=== PATIENT | male | born 1970 | race Caucasian/White ===

== ENCOUNTER → 2017-05-23 | Outpatient (CLI) | payer OTHER ==
[~2017-05-23] MED LIST: AMOX500 PO; CYCL10 PO; Flonase 0.05% N16 GM; IBUP800; LORA10 PO; Mucinex600 MG PO; Naprosyn500 MG PO; TRAM50 PO
[2017-05-23 10:21] LABS: BASOPHILS ABSOLUTE AUTO 0.05 K/mm3 (0.00-0.23); BASOPHILS PERCENT AUTO 1 % (0-2); EOSINOPHILS ABSOLUTE AUTO 0.16 K/mm3 (0.00-0.68); EOSINOPHILS PERCENT AUTO 3 % (0-6); Hematocrit 45.2 % (37.0-53.0); IMMATURE GRAN ABSOLUTE AUTO 0.01 K/mm3 (0.00-0.10); IMMATURE GRAN PERCENT AUTO 0 % (0-1); LYMPHOCYTES ABSOLUTE AUTO 1.92 K/mm3 (0.84-5.20); LYMPHOCYTES PERCENT AUTO 35 % (21-46); MONOCYTES ABSOLUTE AUTO 0.53 K/mm3 (0.16-1.47); MONOCYTES PERCENT AUTO 10 % (4-13); Mean Corpuscular HGB 31.4 pg (26.0-34.0); Mean Corpuscular HGB Conc 35.4 g/dL (31.5-36.5); Mean Corpuscular Volume 89 fL (80-100); Mean Platelet Volume 11.3 fL (9.1-12.4); NEUTROPHILS ABSOLUTE AUTO 2.77 K/mm3 (1.96-9.15); NEUTROPHILS PERCENT AUTO 51 % (41-73); Platelet Count 204 K/mm3 (150-400); RDW Coefficient Variation 12.5 % (11.7-14.2); RDW Standard Deviation 40.9 fL (35.1-46.3); Red Blood Cell Count 5.09 M/mm3 (4.30-5.90); White Blood Cell Count 5.44 K/mm3 (4.00-11.30)
[2017-05-23 10:39] LABS: Alanine Aminotransfer (ALT/SGP 29 U/L (12-78); Albumin/Globulin Ratio 1.2 (0.8-1.8); Alk Phos 57 U/L (40-126); Anion Gap 8 mmol/L (6-16); Aspartate Aminotrans (AST/SGOT 16 U/L (12-37); Bilirubin, Total 0.7 mg/dL (0.1-1.0); Blood Urea Nitrogen 6 mg/dL (8-24); CO2, Blood 29 mmol/L (21-32); Calcium, Blood 8.7 mg/dL (8.5-10.1); Chloride, Blood 104 mmol/L (98-108); Globulin, Blood 3.3 g/dL (2.2-4.0); Glomerular Filtration Rate >60 (60-); Glucose, Blood 125 mg/dL (70-99); Potassium, Blood 4.2 mmol/L (3.5-5.5); Sodium, Blood 141 mmol/L (136-145); Total Protein, Blood 7.3 g/dL (6.4-8.2)
== END ==
LOC: LAB EV 10:18
PROVIDERS: General Practice
DX: R10.9 Unspecified abdominal pain (principal)
CPT/HCPCS: 80053; 85025

== ENCOUNTER 2018-05-29 21:30 | Emergency (ER) | payer OTHER ==
[~2018-05-29] VITALS: Ht 167.6 cm; Wt 108.9 kg
[2018-05-29 21:51] LABS: BASOPHILS ABSOLUTE AUTO 0.07 K/mm3 (0.00-0.23); BASOPHILS PERCENT AUTO 1 % (0-2); EOSINOPHILS ABSOLUTE AUTO 0.18 K/mm3 (0.00-0.68); EOSINOPHILS PERCENT AUTO 2 % (0-6); Hematocrit 42.2 % (37.0-53.0); Hemoglobin 14.4 g/dL (13.5-17.5); IMMATURE GRAN ABSOLUTE AUTO 0.03 K/mm3 (0.00-0.10); IMMATURE GRAN PERCENT AUTO 0 % (0-1); LYMPHOCYTES ABSOLUTE AUTO 2.86 K/mm3 (0.84-5.20); LYMPHOCYTES PERCENT AUTO 24 % (21-46); MONOCYTES ABSOLUTE AUTO 0.96 K/mm3 (0.16-1.47); MONOCYTES PERCENT AUTO 8 % (4-13); Mean Corpuscular HGB 31.9 pg (26.0-34.0); Mean Corpuscular HGB Conc 34.1 g/dL (31.5-36.5); Mean Corpuscular Volume 93 fL (80-100); Mean Platelet Volume 10.5 fL (9.1-12.4); NEUTROPHILS ABSOLUTE AUTO 7.92 K/mm3 (1.96-9.15); NEUTROPHILS PERCENT AUTO 66 % (41-73); Platelet Count 209 K/mm3 (150-400); RDW Coefficient Variation 12.4 % (11.7-14.2); Red Blood Cell Count 4.52 M/mm3 (4.30-5.90); White Blood Cell Count 12.02 K/mm3 (4.00-11.30)
[2018-05-29 21:59] LABS: Source, Urine Clean Catch
[2018-05-29 22:07] LABS: Bilirubin, Urine Neg (Neg); Blood, Urine Neg (Neg); Glucose Qualitative, Urine 1+ (Neg); Ketones, Urine Neg (Neg); Leukocyte Esterase, Urine 1+ (Neg); Nitrite, Urine Neg (Neg); Protein, Urine Neg (Neg); Specific Gravity, Urine 1.015 (1.003-1.022); Urobilinogen, Urine NORM (Normal)
[2018-05-29 22:09] LABS: Appearance, Urine Clear (Clear); Color, Urine Yellow (P-Yellow)
[2018-05-29 22:10] LABS: Alanine Aminotransfer (ALT/SGP 24 U/L (12-78); Albumin, Blood 3.7 g/dL (3.4-5.0); Albumin/Globulin Ratio 1.2 (0.8-1.8); Alk Phos 56 U/L (50-136); Anion Gap 6 mmol/L (6-16); Aspartate Aminotrans (AST/SGOT 12 U/L (12-37); Bilirubin, Total 0.6 mg/dL (0.1-1.0); Blood Urea Nitrogen 13 mg/dL (8-24); Bun/Creatinine Ratio 26.9 (12.0-20.0); CO2, Blood 27 mmol/L (21-32); Calcium, Blood 8.8 mg/dL (8.5-10.1); Chloride, Blood 107 mmol/L (98-108); Creatinine, Blood 0.48 mg/dL (0.60-1.20); Globulin, Blood 3.1 g/dL (2.2-4.0); Glomerular Filtration Rate >60 (60-); Glucose, Blood 186 mg/dL (70-99); Potassium, Blood 4.1 mmol/L (3.5-5.5); Sodium, Blood 140 mmol/L (136-145); Total Protein, Blood 6.8 g/dL (6.4-8.2)
[2018-05-29 22:15] LABS: Amorphous Light (0-Heavy); Bacteria Rare /hpf; Red Blood Cells, Urine Not Seen /hpf (0-2); Squamous Epithelial Cells Not Seen /hpf (Few); White Blood Cells, Urine Rare /hpf (0-5)
[2018-05-29] MEDS ORDERED: [UNRECOGNIZED DRUG - REMARK] (23:30)
[2018-05-29] MEDS ORDERED: OMEPRAZOLE20 MG PO (23:30)
[2018-05-30] MEDS ORDERED: Norco 5-325 Ta1 EACH PO (01:14)
[2018-05-30] MEDS ORDERED: Augmentin 875-1 EACH PO (01:14)
[2018-05-30] MEDS ORDERED: ONDA4ODT MM (01:14)
[2018-05-30] MEDS ORDERED: Colace100 MG PO (01:14)
== END 2018-05-30 01:55 | disposition home or self-care (01) ==
LOC: ER 21:30
PROVIDERS: Emergency Medicine
DX: K57.32 Diverticulitis of large intestine without perforation or abscess without bleeding (principal); Z79.899 Other long term (current) drug therapy; F17.210 Nicotine dependence, cigarettes, uncomplicated
CPT/HCPCS: 74177; 80053; 81001; 83690; 85025; 87086; 99284-25; A9270-GY; Q9967

== ENCOUNTER → 2021-05-30 | Outpatient (CLI) | payer OTHER ==
[~2021-05-30] MED LIST changes: +Augmentin 875-1 EACH PO; +Colace100 MG PO; +Norco 5-325 Ta1 EACH PO; +OMEPRAZOLE20 MG PO; +ONDA4ODT MM; +[UNRECOGNIZED DRUG - REMARK]
== END ==
LOC: LAB 07:18 → PLD 07:18 → LAB SHORT 07:18
DX: D48.5 Neoplasm of uncertain behavior of skin (principal)
CPT/HCPCS: 88312

== ENCOUNTER 2021-08-23 12:36 | Emergency (ER) | payer OTHER ==
[~2021-08-23] VITALS: Ht 165.1 cm; Wt 122.5 kg
[2021-08-23 13:58] LABS: BASOPHILS PERCENT AUTO 1 % (0-2); EOSINOPHILS ABSOLUTE AUTO 0.26 K/mm3 (0.00-0.68); EOSINOPHILS PERCENT AUTO 2 % (0-6); Hematocrit 44.4 % (37.0-53.0); IMMATURE GRAN ABSOLUTE AUTO 0.12 K/mm3 (0.00-0.10); IMMATURE GRAN PERCENT AUTO 1 % (0-1); LYMPHOCYTES ABSOLUTE AUTO 1.62 K/mm3 (0.84-5.20); LYMPHOCYTES PERCENT AUTO 14 % (21-46); MONOCYTES PERCENT AUTO 9 % (4-13); Mean Corpuscular HGB 29.8 pg (26.0-34.0); Mean Corpuscular HGB Conc 33.8 g/dL (31.5-36.5); Mean Corpuscular Volume 88 fL (80-100); Mean Platelet Volume 11.2 fL (9.1-12.4); NEUTROPHILS ABSOLUTE AUTO 8.68 K/mm3 (1.96-9.15); NEUTROPHILS PERCENT AUTO 73 % (41-73); Platelet Count 266 K/mm3 (150-400); RDW Coefficient Variation 12.7 % (11.7-14.2); RDW Standard Deviation 41.1 fL (35.1-46.3); Red Blood Cell Count 5.03 M/mm3 (4.30-5.90); White Blood Cell Count 11.88 K/mm3 (4.00-11.30)
[2021-08-23 14:03] LABS: Bun/Creatinine Ratio 18.6 (12.0-20.0); C-REACTIVE PROTEIN, EXT RANGE 10.8 mg/dL (0.000-0.300); Calcium, Blood 9.3 mg/dL (8.5-10.1); Creatinine, Blood 0.59 mg/dL (0.60-1.20); Potassium, Blood 4.3 mmol/L (3.5-5.5)
[2021-08-23] MEDS ORDERED: ALOGLIPTIN25 M7 PO (16:21)
[2021-08-23] MEDS ORDERED: GLIP10 PO (16:22)
[2021-08-23] MEDS ORDERED: METFORMIN HCL500 M3 PO (16:22)
[2021-08-23] MEDS ORDERED: KETO10 PO (18:12)
[2021-08-23] MEDS ORDERED: CEPH500 PO (18:12)
== END 2021-08-23 18:34 | disposition home or self-care (01) ==
LOC: ER 12:36
PROVIDERS: Physician Assistant
DX: L03.116 Cellulitis of left lower limb (principal); R73.9 Hyperglycemia, unspecified; F17.210 Nicotine dependence, cigarettes, uncomplicated; Z79.899 Other long term (current) drug therapy; Z79.84 Long term (current) use of oral hypoglycemic drugs
CPT/HCPCS: 36415; 80048; 85025; 86140; 93971; A9270; J1885

== ENCOUNTER 2021-08-26 08:02 | Emergency (ER) | payer OTHER ==
[~2021-08-26] VITALS: Ht 170.2 cm; Wt 83.9 kg
[~2021-08-26 08:02] MED LIST changes: +ALOGLIPTIN25 M7 PO; +CEPH500 PO; +GLIP10 PO; +KETO10 PO; +METFORMIN HCL500 M3 PO
== END 2021-08-26 08:55 | disposition home or self-care (01) ==
LOC: ER 08:02
DX: L03.116 Cellulitis of left lower limb (principal); J44.9 Chronic obstructive pulmonary disease, unspecified; E11.9 Type 2 diabetes mellitus without complications; F17.210 Nicotine dependence, cigarettes, uncomplicated; Z79.899 Other long term (current) drug therapy; Z79.84 Long term (current) use of oral hypoglycemic drugs
CPT/HCPCS: 99282

== ENCOUNTER → 2023-04-08 | Outpatient (CLI) | payer OTHER | LOC: LAB SHORT 13:22 → LAB 13:22 | DX: M25.532 Pain in left wrist (principal) | CPT/HCPCS: 84550 ==

== ENCOUNTER → 2024-04-18 | Outpatient (CLI) | payer OTHER ==
[2024-04-18 11:05] LABS: BASOPHILS PERCENT AUTO 1 % (0-2); EOSINOPHILS ABSOLUTE AUTO 0.45 K/mm3 (0.00-0.68); EOSINOPHILS PERCENT AUTO 6 % (0-6); Hematocrit 45.3 % (37.0-53.0); Hemoglobin 16.2 g/dL (13.5-17.5); IMMATURE GRAN ABSOLUTE AUTO 0.02 K/mm3 (0.00-0.10); IMMATURE GRAN PERCENT AUTO 0 % (0-1); LYMPHOCYTES ABSOLUTE AUTO 1.68 K/mm3 (0.84-5.20); LYMPHOCYTES PERCENT AUTO 22 % (21-46); MONOCYTES ABSOLUTE AUTO 0.62 K/mm3 (0.16-1.47); MONOCYTES PERCENT AUTO 8 % (4-13); Mean Corpuscular HGB 30.6 pg (26.0-34.0); Mean Corpuscular HGB Conc 35.8 g/dL (31.5-36.5); Mean Corpuscular Volume 86 fL (80-100); Mean Platelet Volume 10.5 fL (9.1-12.4); NEUTROPHILS ABSOLUTE AUTO 4.94 K/mm3 (1.96-9.15); NEUTROPHILS PERCENT AUTO 63 % (41-73); Platelet Count 287 K/mm3 (150-400); RDW Coefficient Variation 12.9 % (11.7-14.2); White Blood Cell Count 7.81 K/mm3 (4.00-11.30)
[2024-04-18 11:18] LABS: Albumin, Blood 3.9 g/dL (3.4-5.0); Albumin/Globulin Ratio 1.1 (0.8-1.8); Bilirubin, Total 1.4 mg/dL (0.1-1.0); Bun/Creatinine Ratio 15.2 (12.0-20.0); Calcium, Blood 9.4 mg/dL (8.5-10.1); Creatinine, Blood 0.66 mg/dL (0.60-1.20); Globulin, Blood 3.4 g/dL (2.2-4.0); Potassium, Blood 4.5 mmol/L (3.5-5.5); Total Protein, Blood 7.3 g/dL (6.4-8.2)
== END ==
LOC: LAB SHORT 11:00 → LAB 11:00
PROVIDERS: Chiropractor
DX: R10.12 Left upper quadrant pain (principal); R10.13 Epigastric pain; R17 Unspecified jaundice
CPT/HCPCS: 80053; 82248; 83690; 84484; 85025

== ENCOUNTER 2024-05-19 10:26 | Day surgery (SDC) | payer OTHER ==
[~2024-05-19] VITALS: Ht 167.6 cm; Wt 94.1 kg
[~2024-05-19 10:26] MED LIST changes: +Lactated Ringer's 1,000 ML IV SCH
[2024-05-19 10:57] VITALS: BP 136/94
--- NOTE | 2024-05-19 11:05 | NUR ---
Ambulatory in Day Surgery. History, Chart, Medications and Allergies reviewed before start of procedure. Lungs clear T/O to Auscultation. Patient confirms NPO status and agrees with scheduled surgery. Pre-Op teaching done. Pt verbalizes understanding. Patient States Post-Procedure ride home has been arranged.
[2024-05-19] MEDS ORDERED: propofoL 20 ML IV ONE (11:24)
--- NOTE | 2024-05-19 11:24 | NUR ---
05/19/24 1124 Shannan Adkins History, Chart, Medications and Allergies reviewed before start of procedure. DR LEWIS PROVIDING ANESTHESIA SEEECORD
[2024-05-19 11:50] VITALS: BP 134/67
--- NOTE | 2024-05-19 11:53 | NUR ---
REPORT RECEIVED FROM ASHLEY RICHARD. VSS. PT ON RA. PT A&OX4. PT ABLE TO REPOSITION SELF IN BED. PT REQUESTING PO FLUIDS AND TOLERATING THEM WELL. PT DENIES PAIN, NAUSEA OR OTHER DISCOMFORTS. PT SPOUSE AT BEDSIDE.
[2024-05-19 12:00] VITALS: BP 138/73
[2024-05-19 12:05] VITALS: BP 137/82
--- NOTE | 2024-05-19 12:21 | NUR ---
Patient up to Ambulate independently. Gait steady. VSS AND CONSISTENT WITH PT BASELINE. PT HAS NO COMPLAINTS AND VERBALIZES READINESS TO GO HOME. Discharge instructions reviewed with patient AND HIS SPOUSE. Patient verbalizes understanding. Copy given to patient to take home. Patient States Post-Procedure ride home has been arranged. Discharged via wheelchair to private car for ride home. PT BELONGINGS RETURNED TO PT.
== END 2024-05-19 12:15 | disposition home or self-care (01) ==
LOC: ORD 10:26 → ORSCMMR 10:26 → ORD 10:27 → ORSCMMR 10:27 → ORD 12:15 → ORSCMMR 12:15 → ORD 14:15
PROVIDERS: Internal Medicine Gastroenterology
PROC: 0DB48ZX Excision of Esophagogastric Junction, Via Natural or Artificial Opening Endoscopic, Diagnostic (ICD-10-PCS; principal; 2024-05-19 14:15)
DX: R13.10 Dysphagia, unspecified (principal); C15.9 Malignant neoplasm of esophagus, unspecified; R63.4 Abnormal weight loss; K21.9 Gastro-esophageal reflux disease without esophagitis; Z87.891 Personal history of nicotine dependence; E11.9 Type 2 diabetes mellitus without complications; Z79.84 Long term (current) use of oral hypoglycemic drugs; Z79.899 Other long term (current) drug therapy
CPT/HCPCS: 82947; 88305; 88360; J2704; J7120

== ENCOUNTER 2024-05-31 08:57 | Inpatient (IN) | payer OTHER ==
[~2024-05-31] VITALS: Ht 167.6 cm; Wt 89.1 kg
[~2024-05-31 08:57] MED LIST changes: -Lactated Ringer's 1,000 ML IV SCH
[2024-05-31 10:17] LABS: BASOPHILS ABSOLUTE AUTO 0.12 K/mm3 (0.00-0.23); BASOPHILS PERCENT AUTO 1 % (0-2); EOSINOPHILS ABSOLUTE AUTO 0.28 K/mm3 (0.00-0.68); EOSINOPHILS PERCENT AUTO 3 % (0-6); Hematocrit 38.6 % (37.0-53.0); Hemoglobin 14.1 g/dL (13.5-17.5); IMMATURE GRAN ABSOLUTE AUTO 0.03 K/mm3 (0.00-0.10); IMMATURE GRAN PERCENT AUTO 0 % (0-1); LYMPHOCYTES ABSOLUTE AUTO 1.47 K/mm3 (0.84-5.20); LYMPHOCYTES PERCENT AUTO 17 % (21-46); MONOCYTES PERCENT AUTO 7 % (4-13); Mean Corpuscular HGB 31.1 pg (26.0-34.0); Mean Corpuscular HGB Conc 36.5 g/dL (31.5-36.5); Mean Corpuscular Volume 85 fL (80-100); Mean Platelet Volume 10.7 fL (9.1-12.4); NEUTROPHILS ABSOLUTE AUTO 6.21 K/mm3 (1.96-9.15); NEUTROPHILS PERCENT AUTO 71 % (41-73); Platelet Count 300 K/mm3 (150-400); Red Blood Cell Count 4.54 M/mm3 (4.30-5.90); White Blood Cell Count 8.71 K/mm3 (4.00-11.30)
[2024-05-31 10:43] LABS: Albumin, Blood 3.6 g/dL (3.4-5.0); Albumin/Globulin Ratio 1.2 (0.8-1.8); Bun/Creatinine Ratio 28.3 (12.0-20.0); Calcium, Blood 8.7 mg/dL (8.5-10.1); Creatinine, Blood 0.46 mg/dL (0.60-1.20); Globulin, Blood 3.1 g/dL (2.2-4.0); Potassium, Blood 4.1 mmol/L (3.5-5.5); Total Protein, Blood 6.7 g/dL (6.4-8.2)
[2024-05-31] MEDS ORDERED: NS 1,000 ML IV SCH (12:55)
[2024-05-31] MEDS ORDERED: FentaNYL Citrate 50 MCG/ML 2 ML Injection IV PRN (12:55)
[2024-05-31 14:41] VITALS: BP 140/89
[2024-05-31] MEDS ORDERED: ALPRAZolam 0.25 MG Tab PO PRN (18:25)
[2024-05-31 19:41] VITALS: BP 130/78
[2024-05-31] MEDS ORDERED: Melatonin 5 MG Tablet PO SCH (21:00)
[2024-06-01] VITALS (13 sets, daily range): BP systolic 127–149; BP diastolic 66–85
--- NOTE | 2024-06-01 04:23 | NUR ---
SHIFT SUMMARY PT ALERT ORIENTED X 4 ABLE TO VERBALIZE NEEDS GETS UP AD NNEKA IN HIS ROOM. REMAINS NPO R/T DYSPHAGIA AND ESOPHAGEAL CANCER. C/O ANXIETY AND TROUBLE SLEEPING MEDICATED WITH XANAX AND MELATONIN AND HE SLEPT WELL MOST OF THE NIGHT. NO C/O PAIN THIS SHIFT. REMAINS ON NS AT 50. VSS ON RA SATTING AT 98%. HE DOES HAVE A LOW GRADE TEMP OF 99.0 AND 99.7. HES PENDING ONCOLOGY EVAL TO SEE WHAT THE NEXT STEPS WILL BE AND IF HE WILL GET A PEG TUBE OR MEDIPORT PLACED. RESTING IN BED AT THIS TIME WITH CALL LIGHT IN REACH
[2024-06-01 05:41] LABS: Hemoglobin 13.6 g/dL (13.5-17.5); Mean Corpuscular HGB 30.7 pg (26.0-34.0); Mean Corpuscular HGB Conc 35.8 g/dL (31.5-36.5); Mean Corpuscular Volume 86 fL (80-100); Platelet Count 259 K/mm3 (150-400); RDW Coefficient Variation 13.2 % (11.7-14.2); RDW Standard Deviation 41.1 fL (35.1-46.3); Red Blood Cell Count 4.43 M/mm3 (4.30-5.90); White Blood Cell Count 7.64 K/mm3 (4.00-11.30)
[2024-06-01 06:19] LABS: Bun/Creatinine Ratio 20.1 (12.0-20.0); Calcium, Blood 8.5 mg/dL (8.5-10.1); Creatinine, Blood 0.55 mg/dL (0.60-1.20); Potassium, Blood 3.8 mmol/L (3.5-5.5)
[2024-06-01] MEDS ORDERED: Enoxaparin 40 MG/0.4 ML SYR SC SCH (09:00)
[2024-06-01] MEDS ORDERED: CeFAZolin Sodium 2,000 MG in NS 100 ML IV SCH (10:35)
[2024-06-01] MEDS ORDERED: Lactated Ringer's 1,000 ML IV SCH (10:45)
[2024-06-01] MEDS ORDERED: Bupivacaine 0.5% HCl 5 MG/ML 30MLVIAL ONE (10:50)
--- NOTE | 2024-06-01 11:11 | NUR ---
History, Chart, Medications and Allergies reviewed before start of procedure. Patient confirms NPO status and agrees with scheduled surgery. Pre-Op teaching done. Pt verbalizes understanding. Lungs clear T/O to Auscultation.
[2024-06-01] MEDS ORDERED: propofoL 20 ML IV ONE (11:18)
[2024-06-01] MEDS ORDERED: FentaNYL Citrate 50 MCG/ML 2 ML Injection ONE (11:18)
[2024-06-01] MEDS ORDERED: Phenylephrine HCl 100 MCG/ML-NS 10MLSYR (1MG/10ML) ONE (11:33)
[2024-06-01] MEDS ORDERED: Metoclopramide HCl 5MG / ML 2ML Vial IV PRN (11:40)
[2024-06-01] MEDS ORDERED: Scopolamine Hydrobromide Patch TOP SCH (11:45)
[2024-06-01] MEDS ORDERED: Albuterol 2.5 MG/3 ML VIAL INH PRN (11:45)
[2024-06-01] MEDS ORDERED: HydrALAZINE HCl 20 MG / ML 1ML Vial IV PRN (11:45)
[2024-06-01] MEDS ORDERED: Labetalol HCL 5 MG/ML 4ML Injection (Single Dose) IV PRN (11:45)
[2024-06-01] MEDS ORDERED: Ondansetron HCl 2 MG / ML 2ML Vial IV PRN (11:45)
[2024-06-01] MEDS ORDERED: FentaNYL Citrate 50 MCG/ML 2 ML Injection IV PRN ×2 (11:45→11:50)
[2024-06-01] MEDS ORDERED: HYDROmorphone HCl/Pf 1MG SYR IV PRN (11:45)
[2024-06-01] MEDS ORDERED: ePHEDrine Sulfate 50 MG/ML 1ML Injection IV PRN (11:50)
[2024-06-01] MEDS ORDERED: Morphine Sulfate 4 MG/1 ML Injection IV PRN (11:50)
[2024-06-01] MEDS ORDERED: Droperidol 5 mg/2 ml Vial IV PRN (11:50)
[2024-06-01] MEDS ORDERED: Rocuronium Bromide 10 MG/ML 5ML Injection IV ONE (12:36)
[2024-06-01] MEDS ORDERED: Glycopyrrolate 0.2 MG/ML 5ML VIAL ONE (13:07)
[2024-06-01] MEDS ORDERED: Neostigmine Methylsulfate 5MG/5ML SYR ONE (13:07)
[2024-06-01] MEDS ORDERED: Bisacodyl 10 MG Supp PR PRN (14:00)
[2024-06-01] MEDS ORDERED: Docusate Sodium Liquid 100 MG UDC PT PRN (14:00)
[2024-06-01] MEDS ORDERED: Magnesium Hydroxide Conc 10 ML UDC PT PRN (14:00)
--- NOTE | 2024-06-01 15:10 | NUR ---
PT ARRIVED FROM PACU. ALERT AND ORIENTED X4, CALLS APPROPRIATLEY, SPOUSE AT BEDSIDE. SOME ABD DISCOMFORT AND PAIN IN THE NECK. TREATED PER EMAR.
--- NOTE | 2024-06-01 17:37 | NUR ---
MEDIPORT AND G TUBE PLACED TODAY. PT TOLORATING CLEAR LIQUIDS, STARTING TUBE FEEDS THIS AFTERNOON. PT IS TEARFUL RELATED TO HIS NEW DIAGNOSIS. AT BEDSIDE. AWAITING ONCOLOGY CONSULT. INDEPENDENT IN THE ROOM CALLS BRIDGET
[2024-06-01] MEDS ORDERED: Protein Supplement 30 ML UD PT SCH (18:00)
[2024-06-01] MEDS ORDERED: OxyCODONE 5 mg/Acetamin 325 mg TABLET PO PRN (18:45)
--- NOTE | 2024-06-01 18:48 | NUR ---
PT EXPRESSING 10/08 PAIN, DR. CAMPOS NOTIFIED. PER , ORDER PERCOCET 1-2 TABS Q4HRS PRN
[2024-06-02 04:22] VITALS: BP 105/58
--- NOTE | 2024-06-02 05:35 | NUR ---
SHIFT SUMMARY PT ALERT ORIENTED X 4 ABLE TO VERBALIZE NEEDS GETS UP IN ROOM AD NNEKA. S/P DAY 1 OF HAVING A PEG TUBE PLACED AND A MEDIPORT PLACED. DRESSING INTACT TO LT SIDE OF NECK LT CHEST AND PEG TUBE SITE WITH NO DRAINAGE. C/O ABD PAIN MEDICATED WITH PERCOCET WITH GOOD PAIN CONTROL. HE TOOK HER MEDS CRUSHED IN WATER AND SWALLOWED WELL. PT AND HIS ASKED ABOUT DR. SERVIN COMING TO SEE THEM BECAUSE HE HADNT CAME YET. I CALLED THE AFTER HOURS PHONE AND LEFT A MESSAGE WITH THEM TO INFORM MD. HE REMAINS ON GLUCERNA AT 20ML/HR AND H2O AT 30ML Q4HR. HES TOLERATED THE FEEDINGS WELL BUT DOES SAY THAT HE FEELS A LITTLE BURPY. VSS THIS SHIFT SATTING AT 96%. RESTING IN BED AT THIS TIME WITH CALL LIGHT IN REACH
[2024-06-02 06:08] LABS: Magnesium, Blood 1.8 mg/dL (1.6-2.4); Phosphorus, Blood 3.9 mg/dL (2.5-4.9)
[2024-06-02 07:44] VITALS: BP 114/71
[2024-06-02] MEDS ORDERED: Multivitamins-Minerals Liquid 15 ML Oral Syringe PT SCH (09:00)
[2024-06-02] MEDS ORDERED: Thiamine HCl 100 MG Tab PT SCH (09:00)
[2024-06-02] MEDS ORDERED: METF500 PO (13:48)
[2024-06-02 15:22] VITALS: BP 129/74
--- NOTE | 2024-06-02 17:38 | NUR ---
SHIFT SUMMARY PT AOX4, COOPERATIVE, ABLE TO MAKE NEEDS KNOWN. IND IN ROOM, WAS CONNECTED TO BASAL FEEDING UNTIL 1500 TODAY, THEN INITIATED BOLUS FEEDING 4 TIMES A DAY 480ML EACH FEEDING WITH 100ML FLUSH BEFORE AND AFTER. PT AND FAMILY RECEPTIVE TO EDUCATION. BLOOD SUGAR COVERAGE ACTIVE PER SS. SHOULD DC 06/03/24. ENDORSED PAIN AFTER VISIT FROM GI DOCTOR AFTER "PEG TUBE WAS PULLED ON". BED IN LOWEST POSITION, CALL LIGHT WITHIN REACH.
[2024-06-02] MEDS ORDERED: Insulin Human Lispro 100 Units/ML 3ML Syringe SC SCH (18:00)
[2024-06-02 19:23] VITALS: BP 122/75
[2024-06-03 05:32] VITALS: BP 133/81
[2024-06-03 06:04] LABS: Bun/Creatinine Ratio 22.6 (12.0-20.0); Calcium, Blood 8.8 mg/dL (8.5-10.1); Creatinine, Blood 0.53 mg/dL (0.60-1.20); Phosphorus, Blood 3.9 mg/dL (2.5-4.9); Potassium, Blood 4.2 mmol/L (3.5-5.5)
--- NOTE | 2024-06-03 06:07 | NUR ---
SHIFT SUMM: PT IS A 53 YO FULL CODE WHO WAS ADMITTED FOR DYSPHAGIA AND HAS HAD A PEG TUBE PLACED. PT HAS HAD PAIN CONTROL ISSUES THIS EVENING AND HAS BEEN MEDICATED PER EMAR FOR PAIN AND CONSTIPATION ISSUES. PT REPORTS NOT HAVING A BM IN AT LEAST 2 DAYS AND ITS NOT NORMAL FOR HIM. PT IS CURRENTLY ON A FULL LIQUID DIET AND WAS GIVEN FLUID BOLUS'S DURING DAYSHIFT WITH 1.2 RIGO. PT REPORTS PEG TUBE FEELING VERY PAINFUL AND TIGHT AFTER DOCTOR ADJUSTED IT ON 07/02/24. PT HAS SOME DISTENTION AND TENDERNESS. PT HAS SOME HYPOACTIVE BOWEL TONES. PT STILL HAS A "FULL" SENSATION AND DOES NOT FEEL SAFE TO D/C TODAY AND DOES NOT WANT TO CONTINUE THE FEEDINGS IF HE IS GOING TO FEEL LIKE THIS. PT STATES HE DOES NOT WANT TO GO HOME AND FEELS THOUGH SOME CHANGES NEED TO BE MADE FOR SUCESS AND WOULD LIKE TO SPEAK WITH DOCTOR AND REGIONAL PROPERTY MANAGER AGAIN ABOUT WHY HIS PEG TUBE AND ABDOMEN IS SO PAINFUL. PT HAS HAD Q6 BS AND ALL WNL. PT IS WORRIED TO GO HOME AND IS FRUSTRATED AT THIS TIME. PT IS IND IN ROOM AND CALLS TO MAKE NEEDS KNOWN.
[2024-06-03 07:50] VITALS: BP 137/80
[2024-06-03 14:36] VITALS: BP 131/77
--- NOTE | 2024-06-03 19:36 | NUR ---
SUMMARY- AAOX4. IND IN ROOM. ON RA. PAIN WELL CONTROLLED W/EMAR PAIN MEDS. PT IS IND W/PEG TUBE FEEDINGS. PT ONLY PUT 1250ML OF THE ORDERED 1896ML FEEDINGS IN PEG TUBE THIS SHIFT DUE TO BEING "TOO FULL." WATER [id number]. NO ACUTE EVENTS THIS SHIFT. PT HAD BM THIS SHIFT.
[2024-06-03 20:04] VITALS: BP 132/79
--- NOTE | 2024-06-04 03:01 | NUR ---
SHIFT SUMM: PT HAS HAD A MUCH BETTER EVENING COMPARED TO THE NIGHT BEFORE AND PAIN MANAGEMENT HAS BEEN BETTER. PT HAS BEEN DOING HIS OWN FEEDINGS AND OWN FLUSHES THIS SHIFT. PT CONTINUES FULL LIQUID DIET AND IS Q6 BS CHECKS BUT HAS NOT NEEDED INSULIN COVERAGE THIS SHIFT. PT IS IND IN ROOM AND CALLS TO MAKE NEEDS KNOWN. PT SEEMS TO BE IN BETTER SPIRITS THIS SHIFT.
[2024-06-04 04:52] VITALS: BP 136/86
[2024-06-04 05:53] LABS: Phosphorus, Blood 4.1 mg/dL (2.5-4.9)
[2024-06-04 07:49] VITALS: BP 119/72
[2024-06-04 15:09] VITALS: BP 130/76
--- NOTE | 2024-06-04 18:40 | NUR ---
SUMMARY- AAOX4. IND. ON RA. PT TOOK SEVERAL WALKS IN THE HALLWAY THIS SHIFT. PT ADMINISTERED 1850ML TUBE FEEDINGS INDEPENDENTLY THIS SHIFT W/ 700ML WATER FLUSHES. PT DENIED PAIN THIS SHIFT. BSX4. NO ACUTE EVENTS THIS SHIFT.
[2024-06-04 20:16] VITALS: BP 131/80
--- NOTE | 2024-06-05 04:39 | NUR ---
SHIFT SUMMARY: PT AOX4 IND IN THE ROOM. PT PLEASANT BUT ANXIOUS ABOUT HIS PEG TUBE AND THE FUTURE TREATMENT COMING UP. ENDORSES SOME INSOMNIA, AND PAIN, MEDICATED PER EMR. PT TOLERATING MEDICATIONS WELL. NO ACUTE EVENTS OVERNIGHT. PT IN BED RESTING, BED IN LOWEST POSITION, CALL LIGHT IN REACH. CONTINUING CARE.
[2024-06-05 05:20] VITALS: BP 112/68
[2024-06-05 07:23] LABS: Albumin, Blood 3.4 g/dL (3.4-5.0); Anion Gap 11 mmol/L (3-11); Blood Urea Nitrogen 9 mg/dL (8-24); Bun/Creatinine Ratio 18.5 (12.0-20.0); CO2, Blood 25 mmol/L (21-32); Calcium, Blood 9.2 mg/dL (8.5-10.1); Chloride, Blood 101 mmol/L (98-108); Creatinine, Blood 0.49 mg/dL (0.60-1.20); Glomerular Filtration Rate 124 (60-); Glucose, Blood 184 mg/dL (70-99); Phosphorus, Blood 3.8 mg/dL (2.5-4.9); Potassium, Blood 4.2 mmol/L (3.5-5.5); Sodium, Blood 133 mmol/L (136-145)
[2024-06-05 07:41] VITALS: BP 122/76
[2024-06-05] MEDS ORDERED: ALPR.25 PO (11:27)
[2024-06-05] MEDS ORDERED: MELATONIN5 M1 PO (11:28)
[2024-06-05] MEDS ORDERED: DOCU100 PT (11:28)
[2024-06-05] MEDS ORDERED: CENTRUM SILVER1 EAC2 PT (11:29)
[2024-06-05] MEDS ORDERED: Percocet 5-3251 EACH PO (11:30)
[2024-06-05] MEDS ORDERED: B-1100 M1 PO (11:30)
--- NOTE | 2024-06-05 12:21 | NUR ---
DC-1217 PT DC IN STABLE CONDITION. EXTRA PEG TUBE SUPPLIES/SPLIT GAUZE GIVEN TO PT. HARD SCRIPTS GIVEN TO PT AFTER COPIES MADE. PT'S PICKED UP PT. PT LEFT WITH ALL BELONGINGS + 6 1L TUBE FEEDINGS.
== END 2024-06-05 12:18 | disposition hospice, home (50) | DRG 356 ==
LOC: ER 08:57 → SURS 08:58 → MEDS 08:58
PROVIDERS: Student in an Organized Health Care Education/Training Program; Surgery; ADMIT Internal Medicine
PROC: B5181ZA Fluoroscopy of Superior Vena Cava using Low Osmolar Contrast, Guidance (ICD-10-PCS; 2024-06-01)
PROC: 0DH63UZ Insertion of Feeding Device into Stomach, Percutaneous Approach (ICD-10-PCS; 2024-06-01)
PROC: 3E0G76Z Introduction of Nutritional Substance into Upper GI, Via Natural or Artificial Opening (ICD-10-PCS; 2024-06-01)
PROC: 0JH60WZ Insertion of Totally Implantable Vascular Access Device into Chest Subcutaneous Tissue and Fascia, Open Approach (ICD-10-PCS; principal; 2024-06-01 11:00)
PROC: 02HV33Z Insertion of Infusion Device into Superior Vena Cava, Percutaneous Approach (ICD-10-PCS; 2024-06-01 11:00)
DX: C15.5 Malignant neoplasm of lower third of esophagus (principal); E43 Unspecified severe protein-calorie malnutrition; E87.1 Hypo-osmolality and hyponatremia; R13.10 Dysphagia, unspecified; J44.9 Chronic obstructive pulmonary disease, unspecified; E11.9 Type 2 diabetes mellitus without complications; K21.9 Gastro-esophageal reflux disease without esophagitis; G47.00 Insomnia, unspecified; F12.90 Cannabis use, unspecified, uncomplicated; F41.0 Panic disorder [episodic paroxysmal anxiety]; G57.00 Lesion of sciatic nerve, unspecified lower limb; Z87.09 Personal history of other diseases of the respiratory system; Z98.890 Other specified postprocedural states; Z90.89 Acquired absence of other organs; Z87.891 Personal history of nicotine dependence; Z88.8 Allergy status to other drugs, medicaments and biological substances; Z85.850 Personal history of malignant neoplasm of thyroid; Z87.19 Personal history of other diseases of the digestive system
CPT/HCPCS: 36415; 71046; 77001; 80048; 80053; 80069; 82947; 83036; 83735; 84100; 84484; 85025; 85027; 85379; 93005; 93010; 99285-25; A9270; C1769; C1788; C1894; G0378; J0690; J1642; J1650; J2371; J2704; J2710; J3010; J7030; J7120

== ENCOUNTER 2024-08-04 12:15 | Emergency (ER) | payer OTHER ==
[~2024-08-04] VITALS: Ht 165.1 cm; Wt 91.6 kg
[~2024-08-04 12:15] MED LIST changes: +ALPR.25 PO; +B-1100 M1 PO; +CENTRUM SILVER1 EAC2 PT; +DOCU100 PT; +MELATONIN5 M1 PO; +METF500 PO; +Percocet 5-3251 EACH PO
[2024-08-04] MEDS ORDERED: Dexamethasone Sod Phos 10 MG/ML 1ML VIAL IV ONE (12:50)
[2024-08-04] MEDS ORDERED: Ketorolac Tromethamine 30mg Vial IV ONE (12:50)
[2024-08-04 13:45] VITALS: BP 128/83
[2024-08-04 13:52] LABS: Albumin, Blood 3.5 g/dL (3.4-5.0); Albumin/Globulin Ratio 1.1 (0.8-1.8); BASOPHILS ABSOLUTE AUTO 0.08 K/mm3 (0.00-0.23); BASOPHILS PERCENT AUTO 2 % (0-2); Bilirubin, Total 0.5 mg/dL (0.1-1.0); Bun/Creatinine Ratio 30.7 (12.0-20.0); Calcium, Blood 8.6 mg/dL (8.5-10.1); Creatinine, Blood 0.49 mg/dL (0.60-1.20); EOSINOPHILS ABSOLUTE AUTO 0.17 K/mm3 (0.00-0.68); EOSINOPHILS PERCENT AUTO 3 % (0-6); Globulin, Blood 3.1 g/dL (2.2-4.0); Hematocrit 39.4 % (37.0-53.0); Hemoglobin 14.1 g/dL (13.5-17.5); IMMATURE GRAN ABSOLUTE AUTO 0.04 K/mm3 (0.00-0.10); IMMATURE GRAN PERCENT AUTO 1 % (0-1); LYMPHOCYTES ABSOLUTE AUTO 1.23 K/mm3 (0.84-5.20); LYMPHOCYTES PERCENT AUTO 25 % (21-46); MONOCYTES ABSOLUTE AUTO 0.31 K/mm3 (0.16-1.47); MONOCYTES PERCENT AUTO 6 % (4-13); Magnesium, Blood 2.2 mg/dL (1.6-2.4); Mean Corpuscular HGB 31.3 pg (26.0-34.0); Mean Corpuscular HGB Conc 35.8 g/dL (31.5-36.5); Mean Corpuscular Volume 88 fL (80-100); NEUTROPHILS ABSOLUTE AUTO 3.13 K/mm3 (1.96-9.15); NEUTROPHILS PERCENT AUTO 63 % (41-73); Potassium, Blood 4.4 mmol/L (3.5-5.5); RDW Coefficient Variation 14.2 % (11.7-14.2); RDW Standard Deviation 44.6 fL (35.1-46.3); Total Protein, Blood 6.6 g/dL (6.4-8.2); White Blood Cell Count 4.96 K/mm3 (4.00-11.30)
== END 2024-08-04 14:30 | disposition home or self-care (01) ==
LOC: ER 12:15
PROVIDERS: Student in an Organized Health Care Education/Training Program
DX: R13.10 Dysphagia, unspecified (principal); C15.9 Malignant neoplasm of esophagus, unspecified; E11.65 Type 2 diabetes mellitus with hyperglycemia; J44.9 Chronic obstructive pulmonary disease, unspecified; Z79.84 Long term (current) use of oral hypoglycemic drugs; Z79.899 Other long term (current) drug therapy; Z88.4 Allergy status to anesthetic agent; F17.210 Nicotine dependence, cigarettes, uncomplicated; Z90.89 Acquired absence of other organs
CPT/HCPCS: 74220; 80053; 83735; 85025; 96374; 96375; 99284-25; J1100; J1885

== ENCOUNTER → 2024-10-14 | Outpatient (CLI) | payer OTHER ==
[2024-10-14 10:11] LABS: BASOPHILS ABSOLUTE AUTO 0.06 K/mm3 (0.00-0.23); BASOPHILS PERCENT AUTO 1 % (0-2); EOSINOPHILS ABSOLUTE AUTO 0.17 K/mm3 (0.00-0.68); EOSINOPHILS PERCENT AUTO 4 % (0-6); Hematocrit 44.3 % (37.0-53.0); Hemoglobin 16.2 g/dL (13.5-17.5); IMMATURE GRAN ABSOLUTE AUTO 0.03 K/mm3 (0.00-0.10); IMMATURE GRAN PERCENT AUTO 1 % (0-1); LYMPHOCYTES ABSOLUTE AUTO 1.21 K/mm3 (0.84-5.20); LYMPHOCYTES PERCENT AUTO 25 % (21-46); MONOCYTES ABSOLUTE AUTO 0.74 K/mm3 (0.16-1.47); MONOCYTES PERCENT AUTO 15 % (4-13); Mean Corpuscular HGB Conc 36.6 g/dL (31.5-36.5); Mean Corpuscular Volume 89 fL (80-100); NEUTROPHILS ABSOLUTE AUTO 2.67 K/mm3 (1.96-9.15); NEUTROPHILS PERCENT AUTO 55 % (41-73); NRBC ABSOLUTE 0.00 K/mm3 (0.00-0.02); NRBC Auto 0.0 /100 WBC (0.0-0.2); Platelet Count 162 K/mm3 (150-400); RDW Coefficient Variation 13.6 % (11.7-14.2); RDW Standard Deviation 43.7 fL (35.1-46.3)
[2024-10-14 10:18] LABS: Alanine Aminotransfer (ALT/SGP 40.0 U/L (12-78); Albumin, Blood 3.7 g/dL (3.4-5.0); Albumin/Globulin Ratio 1.0 (0.8-1.8); Anion Gap 12.0 mmol/L (3-11); Aspartate Aminotrans (AST/SGOT 25.0 U/L (12-37); Bilirubin, Total 1.0 mg/dL (0.1-1.0); Blood Urea Nitrogen 12.0 mg/dL (8-24); CO2, Blood 28.0 mmol/L (21-32); Calcium, Blood 9.3 mg/dL (8.5-10.1); Chloride, Blood 100.0 mmol/L (98-108); Creatinine, Blood 0.67 mg/dL (0.60-1.20); Globulin, Blood 3.6 g/dL (2.2-4.0); Glucose, Blood 351.0 mg/dL (70-99); Potassium, Blood 4.9 mmol/L (3.5-5.5); Sodium, Blood 135.0 mmol/L (136-145); Total Protein, Blood 7.3 g/dL (6.4-8.2)
== END ==
LOC: LAB 10:02 → LAB SHORT 10:02
PROVIDERS: Physician Assistant Medical
DX: R10.12 Left upper quadrant pain (principal)
CPT/HCPCS: 80053; 83690; 85025

== ENCOUNTER → 2025-01-24 | Outpatient (CLI) | payer OTHER ==
[2025-01-24 11:35] LABS: BASOPHILS ABSOLUTE AUTO 0.11 K/mm3 (0.00-0.23); BASOPHILS PERCENT AUTO 1 % (0-2); EOSINOPHILS ABSOLUTE AUTO 0.23 K/mm3 (0.00-0.68); EOSINOPHILS PERCENT AUTO 3 % (0-6); Hematocrit 41.0 % (37.0-53.0); Hemoglobin 14.8 g/dL (13.5-17.5); IMMATURE GRAN ABSOLUTE AUTO 0.05 K/mm3 (0.00-0.10); IMMATURE GRAN PERCENT AUTO 1 % (0-1); LYMPHOCYTES ABSOLUTE AUTO 1.28 K/mm3 (0.84-5.20); LYMPHOCYTES PERCENT AUTO 16 % (21-46); MONOCYTES ABSOLUTE AUTO 0.70 K/mm3 (0.16-1.47); MONOCYTES PERCENT AUTO 9 % (4-13); Mean Corpuscular HGB Conc 36.1 g/dL (31.5-36.5); Mean Corpuscular Volume 92 fL (80-100); NEUTROPHILS ABSOLUTE AUTO 5.91 K/mm3 (1.96-9.15); NEUTROPHILS PERCENT AUTO 71 % (41-73); NRBC ABSOLUTE 0.00 K/mm3 (0.00-0.02); NRBC Auto 0.0 /100 WBC (0.0-0.2); Platelet Count 246 K/mm3 (150-400); RDW Coefficient Variation 12.7 % (11.7-14.2); RDW Standard Deviation 42.7 fL (35.1-46.3)
[2025-01-24 11:50] LABS: Alanine Aminotransfer (ALT/SGP 24.0 U/L (12-78); Albumin, Blood 3.6 g/dL (3.4-5.0); Albumin/Globulin Ratio 0.9 (0.8-1.8); Anion Gap 13.0 mmol/L (3-11); Aspartate Aminotrans (AST/SGOT 19.0 U/L (12-37); Bilirubin, Total 0.7 mg/dL (0.1-1.0); Blood Urea Nitrogen 14.0 mg/dL (8-24); CO2, Blood 27.0 mmol/L (21-32); Calcium, Blood 9.4 mg/dL (8.5-10.1); Chloride, Blood 100.0 mmol/L (98-108); Creatinine, Blood 0.62 mg/dL (0.60-1.20); Globulin, Blood 3.8 g/dL (2.2-4.0); Glucose, Blood 238.0 mg/dL (70-99); Potassium, Blood 4.5 mmol/L (3.5-5.5); Sodium, Blood 135.0 mmol/L (136-145); Total Protein, Blood 7.4 g/dL (6.4-8.2)
== END | disposition home or self-care (01) ==
LOC: LAB 11:31 → LAB SHORT 11:31
PROVIDERS: Physician Assistant
DX: R10.9 Unspecified abdominal pain (principal)
CPT/HCPCS: 80053; 83690; 85025